=== PATIENT | female | born 1955 | race Caucasian/White ===

== ENCOUNTER 2017-10-17 15:48 | Emergency (ER) | payer OTHER, BC ==
[~2017-10-17] VITALS: Ht 167.6 cm; Wt 69.9 kg
[~2017-10-17 15:48] MED LIST: CEPH500C PO; FRS325T PO; IBP600T1 PO; OXYC-12 PO
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
[2017-10-17] MEDS ORDERED: CYCL10TA9 PO (17:14)
[2017-10-17 17:30] VITALS: BP 153/88
--- OUTSIDE RECORDS SUMMARY | 2017-10-18 23:17 | XMS REPORT | Continuity of Care Document ---
Author Author [facility] Address Unknown Phone Unavailable Allergies Active Description Code Type Severity Reaction Onset Reported/Identified Relationship to Patient Clinical Status Yes Penicillins Drug Allergy N/A N/A 09/02/2014 Medications There is no data. Problems Date Dx Coded Attending Type Code Diagnosis Diagnosed By 08/31/2014 ALDA JAMES DO V74.1 SCREENING EXAMINATION FOR PULMONARY TUBERCULOSIS 09/02/2014 ALDA JAMES DO V70.5 PREEMPLOYMENT/PRESCHOOL EXAM Procedures There is no data. Results There is no data. Encounters ACCT No. Visit Date/Time Discharge Status Pt. Type Provider Facility Loc./Unit Complaint [id number] 09/02/2014 16:25:00 09/02/2014 23:59:59 CLS Outpatient ALAD JAMES DO
== END 2017-10-17 17:20 | disposition home or self-care (01) ==
LOC: EDUNIT# 15:48 → ER 15:52
DX: S16.1XXA Strain of muscle, fascia and tendon at neck level, initial encounter (principal); E04.1 Nontoxic single thyroid nodule; I10 Essential (primary) hypertension; Z90.710 Acquired absence of both cervix and uterus; Z87.59 Personal history of other complications of pregnancy, childbirth and the puerperium; V49.40XA Driver injured in collision with unspecified motor vehicles in traffic accident, initial encounter
CPT/HCPCS: 70450; 72125; 99283

== ENCOUNTER 2018-07-15 17:32 | Emergency (ER) | payer OTHER, BC ==
[~2018-07-15] VITALS: Ht 167.6 cm; Wt 69.9 kg
[~2018-07-15 17:32] MED LIST changes: +CYCL10TA9 PO
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
[2018-07-15 21:41] VITALS: BP 151/96
== END 2018-07-15 19:44 | disposition home or self-care (01) ==
LOC: EDUNIT# 17:32 → ER 17:33
DX: S06.0X0A Concussion without loss of consciousness, initial encounter (principal); F43.0 Acute stress reaction; I10 Essential (primary) hypertension; Z90.89 Acquired absence of other organs; Z90.710 Acquired absence of both cervix and uterus; Z98.890 Other specified postprocedural states; Z88.0 Allergy status to penicillin; V47.5XXA Car driver injured in collision with fixed or stationary object in traffic accident, initial encounter
CPT/HCPCS: 99282

== ENCOUNTER → 2019-03-17 | Outpatient (CLI) | payer BC ==
--- NOTE | 2019-03-24 11:32 | Diagnostic Imaging Report ---
EXAMINATION: Digital mammogram bilateral screening with 3D tomosynthesis and CAD. INDICATION: Screening. COMPARISON: There are no prior studies available for comparison. PERSONAL HISTORY: At this time, there are no current complaints. FINDINGS: The fibroglandular tissue in both breasts is heterogeneously dense. This does limit the sensitivity of this exam. There is a small 6 mm benign-appearing nodular density in the 9 o'clock position of the right breast roughly 4-5 cm from the nipple. I would recommend that ultrasound be performed to better characterize this finding. There is no primary or secondary sign of malignancy identified. IMPRESSION: Ultrasound would be recommended for further evaluation of the benign-appearing nodular density in the lateral aspect of the right breast. ACR BI-RADS Category 0: Incomplete. (Needs additional imaging evaluation). Result letter will be mailed to the patient. Note: At least 10% of breast cancer is not imaged by mammography. Dictated by: Dictated on workstation # [id number]
== END ==
LOC: RAD 14:36
PROVIDERS: ATTEND Nurse Practitioner
DX: Z12.31 Encounter for screening mammogram for malignant neoplasm of breast (principal); Z01.411 Encounter for gynecological examination (general) (routine) with abnormal findings; N95.2 Postmenopausal atrophic vaginitis; N81.11 Cystocele, midline
CPT/HCPCS: 77067

== ENCOUNTER → 2019-03-17 | Outpatient (CLI) | payer BC, OTHER ==
--- NOTE | 2019-03-17 16:22 | Diagnostic Imaging Report ---
PROCEDURE: US Thyroid. TECHNIQUE: Multiple real-time grayscale images were obtained of the thyroid in various projections. INDICATION: Thyroid nodule. COMPARISON: Correlation is made with CT of the cervical spine performed on 10/17/2017 which did demonstrate multiple bilateral thyroid nodules. No prior thyroid ultrasound is available for comparison. FINDINGS: Right lobe of the thyroid measures 4.3 x 1.6 x 1.5 cm and the left lobe measures 4.3 x 1.5 x 1.3 cm. Isthmus is 2 mm in thickness. Bilateral thyroid nodules are noted. Largest nodule on the right measures approximately 8 mm x 7 mm. No microcalcifications are seen. 2-3 mm nodules in the upper and lower pole are also noted. On the left, there is a cystic nodule with peripheral calcification measuring approximately 10 mm x 8 mm, perhaps a colloid cyst. No dominant thyroid mass is detected. IMPRESSION: Bilateral thyroid nodules. No dominant thyroid mass is detected. Dictated by: Dictated on workstation # [id number]
== END ==
LOC: RAD 14:39
PROVIDERS: ATTEND Internal Medicine
DX: E04.2 Nontoxic multinodular goiter (principal)
CPT/HCPCS: 76536

== ENCOUNTER → 2019-05-20 | Outpatient (CLI) | payer BC ==
--- NOTE | 2019-05-20 11:30 | Diagnostic Imaging Report ---
INDICATION: Right breast density. This study is performed for further evaluation. COMPARISON: Screening mammogram of 03/27/2019. FINDINGS: Sonographic interrogation of the outer right breast was performed. There is a simple appearing cyst at the 9 o'clock location of the right breast 4 cm from the nipple. This measures 6 mm x 3 mm x 5 mm. This demonstrates posterior acoustic enhancement. No internal vascularity is present. No solid lesions are seen. IMPRESSION: There is a simple cyst at the 9 o'clock location of the right breast 4 cm from the nipple. This likely accounts for the circumscribed density noted mammographically. No concerning findings are identified sonographically. The patient may return to routine annual screening mammography. ACR BI-RADS Category 2: Benign findings. Dictated by: Dictated on workstation # [id number]
== END ==
LOC: RAD 09:03
PROVIDERS: ATTEND Nurse Practitioner
DX: N60.01 Solitary cyst of right breast (principal)

== ENCOUNTER → 2019-07-27 | Outpatient (CLI) | payer BC ==
--- NOTE | 2019-07-27 15:58 | Diagnostic Imaging Report ---
PROCEDURE: CT abdomen and pelvis without contrast. TECHNIQUE: Multiple contiguous axial images were obtained through the abdomen and pelvis without the use of intravenous contrast. Auto Exposure Controls were utilized during the CT exam to meet ALARA standards for radiation dose reduction. INDICATION: Right lower quadrant pain FINDINGS: The lung bases are clear. The liver appears normal. There are multiple small stones in the gallbladder. The common duct is not dilated. The pancreas appears normal. The spleen is not enlarged. Adrenals are normal. Kidneys appear normal. There are scattered diverticula throughout the colon. There is some induration of the fat in the sigmoid region suggesting diverticulitis. The appendix is normal. The small bowel is nondilated. Urinary bladder is normal. The uterus is surgically absent. IMPRESSION: 1. Sigmoid diverticulitis. There is no evidence of diverticular abscess or perforation. 2. Cholecystolithiasis. Dictated by: Dictated on workstation # [id number]
== END ==
LOC: RAD 15:33
PROVIDERS: ATTEND Internal Medicine
DX: K57.30 Diverticulosis of large intestine without perforation or abscess without bleeding (principal); K80.20 Calculus of gallbladder without cholecystitis without obstruction
CPT/HCPCS: 74176

== ENCOUNTER → 2019-12-04 | Outpatient (CLI) | payer BC, OTHER ==
[~2019-12-04] VITALS: Ht 167 cm; Wt 71.0 kg
[~2019-12-04] MED LIST changes: +CATHETER FLUSH 10 ML SYR IV PRN
[2019-12-04 08:17] VITALS: BP 128/83
--- NOTE | 2019-12-06 18:51 | STRESS TEST ---
DATE OF SERVICE: 12/04/2019 RESTING AND POST REGADENOSON TECHNETIUM-99M TETROFOSMIN SPECT CT IMAGING ORDERING PHYSICIAN: Dr. Lam. PRIMARY PHYSICIAN: Dr. Lam. CLINICAL DIAGNOSIS: Chest pain. Baseline images were carried out after injection of 10.26 mCi of technetium-99m Tetrofosmin. This was followed by exercise on a treadmill, which was supervised by Dr. Lam and is reported separately by him. 31.1 mCi of technetium-99m Tetrofosmin were injected after the patient had attained target heart rate and the exercise was continued for another minute afterwards. Review of images at rest and following stress does not indicate any distinct perfusion defects consistent with significant myocardial ischemia or infarction. Gated images show normal global left ventricular systolic function with normal regional wall motion. Left ventricular ejection fraction is calculated to be 66%. Left ventricular end diastolic volume is 31 mL. TID is absent (0.71). CONCLUSIONS: 1. No evidence of significant myocardial ischemia or infarction on this study. 2. Normal regional wall motion. 3. Normal global left ventricular systolic function with a calculated ejection fraction of 66%. Job ID: [id number] DocumentID: [id number] Dictated Date: 12/06/2019 17:01:45 Meat Team Lead Date: 12/06/2019 18:51:14 Dictated By: ALLA GALEANO MD, MA, FACP, FACC,
== END ==
LOC: CARD 06:53
PROVIDERS: ATTEND Internal Medicine
DX: R07.9 Chest pain, unspecified (principal)
CPT/HCPCS: 78452; 93017

== ENCOUNTER 2022-04-22 11:56 | Emergency (ER) | payer SELFPAY ==
[~2022-04-22] VITALS: Ht 167.7 cm; Wt 74.8 kg
[~2022-04-22 11:56] MED LIST changes: -CATHETER FLUSH 10 ML SYR IV PRN; +CYCL10TA25 PO; -CYCL10TA9 PO
[2022-04-22] MEDS ORDERED: NS IV 1000 ML 1,000 ML IV STA (13:01)
--- NOTE | 2022-04-22 13:04 | ED Abdominal Pain ---
General Chief Complaint: Back Problems Stated Complaint: LOWER BACK PAIN Nursing Triage Note: PT AMBULATE TO ROOM FT3 WITHOUT DIFFICULTY WITH C/O BILAT LOWER BACK PAIN THAT RADIATES TO BILAT ABD SINCE SATURDAY. PT REPORTS HX OF DIVERTICULITIS. Source of Information: Patient (DANNY PEÑA) History of Present Illness Date Seen by Provider: Apr 22, 2022 Time Seen by Provider: 13:07 Initial Comments This is a 66-year-old female presents to the emergency room for evaluation of left-sided abdominal pain and low back pain that started on Saturday. She states that she has had numerous GI issues in the past including diverticulitis and a partial colon resection. She states she has tried symptomatic therapy without relief. She denies fever, vomiting, blood in her stools Timing/Duration: 2-3 Days Severity/Quality: Moderate Location: LLQ, Flank Radiation: LLQ (DANNY PEÑA) Allergies and Home Medications Allergies Coded Allergies: Penicillins (Verified Allergy, Unknown, 09/19/10) ciprofloxacin (Verified Allergy, Unknown, 04/22/22) Patient Home Medication List Home Medication List Reviewed: Yes (DANNY PEÑA) Cephalexin Monohydrate (Cephalexin) 500 Mg Capsule, 1 EACH PO BID, (Reported) Entered as Reported by: MAGALYS PAULINO on 09/21/10 1004 Cyclobenzaprine HCl (Cyclobenzaprine HCl) 10 Mg Tablet, 10 MG PO Q8H PRN for SPASMS Prescribed by: LESLIE DELGADILLO on 10/17/17 1714 Diclofenac Sodium (Diclofenac Sodium) 75 Mg Tablet.dr, 75 MG PO BID Prescribed by: Christophe Peña on 04/22/22 1435 Ferrous Sulfate (Iron) 325 Mg Tablet, 1 TAB PO DAILY, (Reported) Entered as Reported by: MAGALYS PAULINO on 09/21/10 1004 Ibuprofen (Motrin) 600 Mg Tab, 600 MG PO Q6HR PRN, (Reported) Entered as Reported by: MAGALYS PAULINO on 09/21/10 1004 Methocarbamol (Methocarbamol) 750 Mg Tablet, 750 MG PO TID Prescribed by: Christophe Peña on 04/22/22 1435 Oxycodone Hcl/Acetaminophen (Percocet 5-325 Mg Tablet) 1 Each Tablet, 1-2 EACH PO Q4-6HR PRN, (Reported) Entered as Reported by: MAGALYS PAULINO on 09/21/10 1004 Review of Systems Review of Systems Constitutional: no symptoms reported Respiratory: No Symptoms Reported Cardiovascular: No Symptoms Reported Gastrointestinal: Abdominal Pain, Nausea Genitourinary: No Symptoms Reported Musculoskeletal: back pain Skin: no symptoms reported Endocrine: No Symptoms Reported (DANNY PEÑA) Past Mdtslhi-Dyzxsl-Plnvhl Hx Patient Social History Tobacco Use?: No Smoking Status: Never a Smoker Smokeless Tobacco Frequency: Never a User Use of E-Cig and/or Vaping dev: No Use of E-Cig and/or Vaping Noam: Never a User Substance use?: No Alcohol Use?: No Pt feels they are or have been: No (DANNY PEÑA) Immunizations Up To Date COVID19 Vaccine Doffer: Kenandy (DANNY PEÑA) Past Medical History Surgeries: Yes Section, Hysterectomy, Orthopedic, Tonsillectomy Respiratory: No Cardiac: Yes Hypertension Neurological: No Reproductive Disorders: No [employer] History: Hysterectomy Genitourinary: No Gastrointestinal: No Musculoskeletal: No Endocrine: No HEENT: No Cancer: No Psychosocial: No Integumentary: No Blood Disorders: No (DANNY PEÑA) Family Medical History No Pertinent Family Hx (DANNY PEÑA) Physical Exam Vital Signs Vital Signs - First Documented 04/22/22 04/22/22 12:03 15:22 Temp 36.2 Pulse 79 Resp 16 B/P (MAP) 203/109 (140) Pulse Ox 100 O2 Delivery Room Air (KAMILLE REDD MD) Vital Signs Capillary Refill : Less Than 3 Seconds (DANNY PEÑA) Height/Weight/BMI Height: 5'6.00" Weight: 154lbs. 0.0oz. 69.025576fs; 26.00 BMI Method:Stated General Appearance: WD/WN, no apparent distress HEENT: PERRL/EOMI, normal ENT inspection Neck: non-tender, full range of motion Respiratory: chest non-tender Cardiovascular: regular rate, rhythm, no edema Gastrointestinal: tenderness (Mild tenderness to palpation of the left lateral lower abdomen. No CVA tenderness) Extremities: normal range of motion, normal inspection Neurologic/Psychiatric: tank processor II-XII nml as tested, oriented x 3 Skin: normal color, warm/dry (DANNY PEÑA) Progress/Results/Core Measures Results/Orders Lab Results Laboratory Tests Test 04/22/22 12:04 04/22/22 12:14 04/22/22 14:06 Range/Units Sodium Level 141 135-145 MMOL/L Potassium Level 4.2 3.6-5.0 MMOL/L Chloride Level 108 H 98-107 MMOL/L Carbon Dioxide Level 20 L 21-32 MMOL/L Anion Gap 13 5-14 MMOL/L Blood Urea Nitrogen 9 7-18 MG/DL Creatinine 0.74 0.60-1.30 MG/DL Estimat Glomerular Filtration Rate 90 BUN/Creatinine Ratio 12 Glucose Level 105 70-105 MG/DL Calcium Level 10.0 8.5-10.1 MG/DL Corrected Calcium 9.6 8.5-10.1 MG/DL Total Bilirubin 0.3 0.1-1.0 MG/DL Aspartate Amino Transf (AST/SGOT) 25 5-34 U/L Alanine Aminotransferase (ALT/SGPT) 29 0-55 U/L Alkaline Phosphatase 60 40-136 U/L Total Protein 7.5 6.4-8.2 GM/DL Albumin 4.5 3.2-4.5 GM/DL Lipase 21 8-78 U/L White Blood Count 6.0 4.3-11.0 10^3/uL Red Blood Count 4.63 3.80-5.11 10^6/uL Hemoglobin 13.8 11.5-16.0 g/dL Hematocrit 42 35-52 % Mean Corpuscular Volume 91 80-99 fL Mean Corpuscular Hemoglobin 30 25-34 pg Mean Corpuscular Hemoglobin Concent 33 32-36 g/dL Red Cell Distribution Width 13.8 10.0-14.5 % Platelet Count 351 130-400 10^3/uL Mean Platelet Volume 10.1 9.0-12.2 fL Immature Granulocyte % (Auto) 0 % Neutrophils (%) (Auto) 58 42-75 % Lymphocytes (%) (Auto) 32 12-44 % Monocytes (%) (Auto) 8 0-12 % Eosinophils (%) (Auto) 1 0-10 % Basophils (%) (Auto) 2 0-10 % Neutrophils # (Auto) 3.5 1.8-7.8 10^3/uL Lymphocytes # (Auto) 1.9 1.0-4.0 10^3/uL Monocytes # (Auto) 0.5 0.0-1.0 10^3/uL Eosinophils # (Auto) 0.1 0.0-0.3 10^3/uL Basophils # (Auto) 0.1 0.0-0.1 10^3/uL Immature Granulocyte # (Auto) 0.0 0.0-0.1 10^3/uL Urine Color YELLOW Urine Clarity CLEAR Urine pH 6.5 5-9 Urine Specific Atkins <=1.005 1.016-1.022 Urine Protein NEGATIVE NEGATIVE Urine Glucose (UA) NEGATIVE NEGATIVE Urine Ketones NEGATIVE NEGATIVE Urine Nitrite NEGATIVE NEGATIVE Urine Bilirubin NEGATIVE NEGATIVE Urine Urobilinogen 0.2 < = 1.0 MG/DL Urine Leukocyte Esterase NEGATIVE NEGATIVE Urine RBC (Auto) NEGATIVE NEGATIVE Urine RBC NONE /HPF Urine WBC 0-2 /HPF Urine Squamous Epithelial Cells RARE /HPF Urine Crystals NONE /LPF Urine Bacteria NEGATIVE /HPF Urine Casts NONE /LPF Urine Mucus NEGATIVE /LPF Urine Culture Indicated NO (KAMILLE REDD MD) Vital Signs/I&O 04/22/22 04/22/22 12:03 15:22 Temp 36.2 37.0 Pulse 79 73 Resp 16 18 B/P (MAP) 203/109 (140) 147/80 Pulse Ox 100 O2 Delivery Room Air Room Air (KAMILLE REDD MD) Blood Pressure Mean: 140 Departure Communication (Admissions) Patient feels markedly improved in the emergency room. Her lab work and CT of the abdomen pelvis did not show any acute emergent pathology. The patient will be treated symptomatically and we discussed very detailed home care and return p recautions (DANNY PEÑA) Impression Primary Impression: Left sided abdominal pain Additional Impression: Left flank pain Disposition: 01 HOME, SELF-CARE Condition: Stable Departure-Patient Inst. Decision time for Depature: 14:34 (DANNY PEÑA) Referrals: HIRAM LEON DO (PCP/Family) Primary Care Physician Patient Instructions: Acute Pain, Adult, Abdominal Pain, Adult ED Add. Discharge Instructions: Please follow-up with your primary care doctor as we discussed. Return to the emergency room with any severe changes or worsening symptoms. All discharge instructions reviewed with patient and/or family. Voiced understanding. Scripts Methocarbamol (Methocarbamol) 750 Mg Tablet 750 MG PO TID for Back Pain, #20 TAB Prov: DANNY PEÑA 04/22/22 Diclofenac Sodium (Diclofenac Sodium) 75 Mg Tablet.dr 75 MG PO BID for 7 Days, #14 TAB Prov: DANNY PEÑA 04/22/22 ATTENDING PHYSICIAN NOTE: I was physically present as attending physician in the emergency department during the care of this patient, but I was not directly involved in the decision making or delivery of care for this patient. (KAMILLE REDD MD) DANNY PEÑA Apr 22, 2022 13:04 KAMILLE REDD MD Apr 24, 2022 17:59
[2022-04-22 13:07] LABS: BASOPHILS # (AUTO) 0.1 10^3/uL (0.0-0.1); BASOPHILS % (AUTO) 2 % (0-10); EOSINOPHILS # (AUTO) 0.1 10^3/uL (0.0-0.3); EOSINOPHILS % (AUTO) 1 % (0-10); HEMATOCRIT 42 % (35-52); HEMOGLOBIN 13.8 g/dL (11.5-16.0); LYMPHOCYTES # (AUTO) 1.9 10^3/uL (1.0-4.0); LYMPHOCYTES % (AUTO) 32 % (12-44); MEAN CORPUSCULAR HEMOGLOBIN 30 pg (25-34); MEAN CORPUSCULAR HGB CONC 33 g/dL (32-36); MEAN CORPUSCULAR VOLUME 91 fL (80-99); MEAN PLATELET VOLUME 10.1 fL (9.0-12.2); MONOCYTES # (AUTO) 0.5 10^3/uL (0.0-1.0); MONOCYTES % (AUTO) 8 % (0-12); NEUTROPHILS # (AUTO) 3.5 10^3/uL (1.8-7.8); NEUTROPHILS % (AUTO) 58 % (42-75); PLATELET COUNT 351 10^3/uL (130-400)
[2022-04-22 13:12] LABS: ALBUMIN 4.5 GM/DL (3.2-4.5); POTASSIUM 4.2 MMOL/L (3.6-5.0)
[2022-04-22 13:15] LABS: TOTAL PROTEIN 7.5 GM/DL (6.4-8.2)
[2022-04-22] MEDS ORDERED: ONDANSETRON 4 MG/2 ML (SDV) Z0FRAN IVP ONE (13:15)
[2022-04-22] MEDS ORDERED: morphine INJ 4 MG/ML 1 ML (VIAL/SYRINGE) IVP ONE (13:15)
[2022-04-22 13:17] LABS: BILIRUBIN,TOTAL 0.3 MG/DL (0.1-1.0)
[2022-04-22 13:18] LABS: CREATININE SERUM 0.74 MG/DL (0.60-1.30)
[2022-04-22] MEDS ORDERED: morphine INJ 10 MG/ML 1ML (SYR OR VIAL) ONE (13:28)
[2022-04-22] MEDS ORDERED: IOHEXOL 350 MG/ML 100 ML (OMNIPAQUE 350) VIAL IV ONE (13:30)
[2022-04-22] MEDS ORDERED: NS 100 ML (IVPB) BAG IV ONE (13:30)
--- NOTE | 2022-04-22 14:10 | Diagnostic Imaging Report ---
PROCEDURE: CT abdomen and pelvis with contrast. TECHNIQUE: Multiple contiguous axial images were obtained through the abdomen and pelvis after administration of intravenous contrast. Auto Exposure Controls were utilized during the CT exam to meet ALARA standards for radiation dose reduction. All CT scans use one or more of the following dose optimizing techniques: automated exposure control, MA and/or KvP adjustment based on patient size and exam type or iterative reconstruction. INDICATION: Abdominal pain. Low back pain. Bloating. COMPARISON: CT abdomen and pelvis without contrast 07/27/2019. FINDINGS: Cholecystectomy. Hysterectomy. Sigmoid anastomosis. Moderate colonic diverticulosis. No evidence of active diverticulitis. Nonspecific simple appearing cysts in both kidneys. The lung bases are clear. The liver, pancreas, spleen, adrenals, collecting systems, decompressed bladder and appendix are negative. No free intraperitoneal air or fluid. No lymphadenopathy. No evidence of bowel obstruction. No acute osseous findings. IMPRESSION: 1. No acute CT findings in the abdomen or pelvis. 2. Moderate colonic diverticulosis without evidence of active diverticulitis. 3. Cholecystectomy. Hysterectomy. Dictated by: Dictated on workstation # [id number]
[2022-04-22 14:12] LABS: BILIRUBIN,URINE NEGATIVE (NEGATIVE); CLARITY,URINE CLEAR; COLOR,URINE YELLOW; GLUCOSE, URINE (UA) NEGATIVE (NEGATIVE); KETONES,URINE NEGATIVE (NEGATIVE); LEUKOCYTE ESTERASE ,URINE NEGATIVE (NEGATIVE); NITRITE,URINE NEGATIVE (NEGATIVE); PH,URINE 6.5 (5-9); PROTEIN,URINE NEGATIVE (NEGATIVE)
[2022-04-22 14:20] LABS: BACTERIA,URINE NEGATIVE /HPF; SQUAMOUS EPITHELIAL CELL,UR RARE /HPF; WBC,URINE 0-2 /HPF
[2022-04-22] MEDS ORDERED: METH-732 PO (14:35)
[2022-04-22] MEDS ORDERED: DICL75TA2 PO (14:35)
[2022-04-22 15:22] VITALS: BP 147/80
== END 2022-04-22 15:22 | disposition home or self-care (01) ==
LOC: EDUNIT# 11:56 → ER 11:57
DX: R10.32 Left lower quadrant pain (principal); Z87.19 Personal history of other diseases of the digestive system; Z90.49 Acquired absence of other specified parts of digestive tract; Z90.710 Acquired absence of both cervix and uterus
CPT/HCPCS: 36415; 74177; 80053; 81000; 83690; 85025